=== PATIENT | female | born 1990 | race American Indian/Alaskan Native ===

== ENCOUNTER 2017-10-26 12:30 | Emergency (ER) | payer MEDICAID ==
[2017-10-26 12:37] VITALS: BP 119/78; PULSE 79; RESP 18; TEMP 98.4; O2SAT 100
--- NOTE | 2017-10-26 13:09 | C.PDOC ---
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 Patient states the patient is HIV positive and is concerned for exposure. Patient denies urine fell into mouth , nasal cavity, or into open wounds. Time Seen by Provider: 10/26/17 12:48 Chief Complaint (Nursing): Body Fluid Exposure History Per: Patient History/Exam Limitations: no limitations Onset/Duration Of Symptoms: Hrs Current Symptoms Are (Timing): Still Present Recent travel outside of the [place]: No Past Medical History Reviewed: Historical Data, Nursing Documentation, Vital Signs Vital Signs: Last Vital Signs Temp 98.4 F 10/26/17 12:34 Pulse 79 10/26/17 12:34 Resp 18 10/26/17 12:34 BP 119/78 10/26/17 12:34 Pulse Ox 100 10/26/17 14:57 - Medical History PMH: No Chronic Diseases Family History: States: Unknown Family Hx - Social History Hx Alcohol Use: No Hx Substance Use: No - Immunization History Hx Tetanus Toxoid Vaccination: No Hx Influenza Vaccination: Yes Hx Pneumococcal Vaccination: No Review Of Systems Except As Marked, All Systems Reviewed And Found Negative. Constitutional: Positive for: Other (Exposure to urine) Physical Exam - Physical Exam Appears: Non-toxic, No Acute Distress Skin: Normal Color, Warm, Dry, No Rash Head: Atraumatic, Normacephalic Eye(s): bilateral: Normal Inspection Oral Mucosa: Moist Neck: Normal ROM Cardiovascular: Rhythm Regular Respiratory: Normal Breath Sounds, No Accessory Muscle Use Extremity: Normal ROM (x4) Neurological/Psych: Oriented x3, Normal Speech, Normal Cranial Nerves, Normal Motor, Normal Sensation Gait: Steady ED Course And Treatment O2 Sat by Pulse Oximetry: 100 Medical Decision Making Medical Decision Making: Patient reassured and explained in depth that there is no need to start prophylaxis at this time, patient instructed on observation and to follow up for further evaluation, patient understands and agrees with plan. Disposition - Disposition Referrals: [facility] [Outside] Disposition: HOME/ ROUTINE Disposition Time: 13:07 Condition: GOOD Additional Instructions: Follow up with the medical doctor within 1-2 days. Return if worsened. Instructions: Blood or Body Fluid Exposure Forms: [employer] ([place]) - Clinical Impression Clinical Impression: Employee exposure to body fluids - PA / [employer] / Resident Statement MD/DO has reviewed & agrees with the documentation as recorded. - Scribe Statement The provider has reviewed the documentation as recorded by the Scribfrancisca Llanos All medical record entries made by the Victor Hugoibfrancisca were at my direction and personally dictated by me. I have reviewed the chart and agree that the record accurately reflects my personal performance of the history, physical exam, medical decision making, and the department course for this patient. I have also personally directed, reviewed, and agree with the discharge instructions and disposition.
== END 2017-10-26 13:12 | disposition home or self-care (01) ==
LOC: C.ER 12:30
DX: Z77.21 Contact with and (suspected) exposure to potentially hazardous body fluids (principal)